=== PATIENT | female | born 1990 | race Caucasian/White ===

== ENCOUNTER 2017-01-24 15:10 | Emergency (ER) | payer OTHER ==
[~2017-01-24] VITALS: Ht 149.9 cm; Wt 64.4 kg
[2017-01-24 16:07] VITALS: BP 120/63
== END 2017-01-24 16:07 | disposition home or self-care (01) ==
LOC: ED 15:10
DX: K08.89 Other specified disorders of teeth and supporting structures (principal); I50.9 Heart failure, unspecified; Z88.0 Allergy status to penicillin; Z88.1 Allergy status to other antibiotic agents; Z88.2 Allergy status to sulfonamides

== ENCOUNTER 2017-04-25 13:39 | Emergency (ER) | payer OTHER ==
[~2017-04-25] VITALS: Ht 149.9 cm; Wt 64.9 kg
[2017-04-25 15:59] VITALS: BP 117/75
== END 2017-04-25 15:59 | disposition home or self-care (01) ==
LOC: ED 13:39
DX: S39.012A Strain of muscle, fascia and tendon of lower back, initial encounter (principal); Z88.0 Allergy status to penicillin; Z88.1 Allergy status to other antibiotic agents; V49.9XXA Car occupant (driver) (passenger) injured in unspecified traffic accident, initial encounter; Y93.89 Activity, other specified; Y99.8 Other external cause status; Y92.89 Other specified places as the place of occurrence of the external cause

== ENCOUNTER 2017-05-01 12:58 | Emergency (ER) | payer OTHER ==
[~2017-05-01] VITALS: Ht 149.9 cm; Wt 64.0 kg
[2017-05-01 14:56] VITALS: BP 106/56
== END 2017-05-01 14:56 | disposition home or self-care (01) ==
LOC: ED 12:58
DX: S29.012A Strain of muscle and tendon of back wall of thorax, initial encounter (principal); Z88.0 Allergy status to penicillin; Z88.1 Allergy status to other antibiotic agents; Z88.8 Allergy status to other drugs, medicaments and biological substances; Z79.899 Other long term (current) drug therapy; V49.9XXA Car occupant (driver) (passenger) injured in unspecified traffic accident, initial encounter; Y93.89 Activity, other specified; Y99.8 Other external cause status; Y92.89 Other specified places as the place of occurrence of the external cause
CPT/HCPCS: 20552; J2001; Q0092

== ENCOUNTER 2017-11-26 14:50 | Emergency (ER) | payer OTHER ==
[~2017-11-26] VITALS: Ht 149.9 cm; Wt 67.7 kg
[2017-11-26 15:06] VITALS: Ht 149.9 cm; Wt 67.7 kg
[2017-11-26 17:07] LABS: BASOPHIL % 0.5 % (0-2); PLATELET COUNT 328 x10^3mcL (130-400); RED CELL DISTRIBUTION WIDTH 14.1 % (11.5-14.5)
[2017-11-26 17:17] LABS: CALCIUM 8.5 mg/dL (8.5-10.1); CARBON DIOXIDE 30.5 mmol/L (21-32); CHLORIDE SERUM 103 mmol/L (98-107); CREATININE SERUM 0.8 mg/dL (0.6-1.0); GFR1 > 60 mL/min; GLUCOSE SERUM 95 mg/dL (74-106); POTASSIUM SERUM 3.8 mmol/L (3.5-5.1); SODIUM SERUM 141 mmol/L (136-145)
[2017-11-26 17:24] LABS: ALKALINE PHOSPHATASE 74 U/L (46-116); ALT/SGPT 24 U/L (14-59); AST/SGOT 15 U/L (15-37); BILIRUBIN TOTAL 0.7 mg/dL (0.20-1.00)
[2017-11-26 18:43] VITALS: BP 94/61
== END 2017-11-26 18:43 | disposition home or self-care (01) ==
LOC: ED 14:50
PROVIDERS: Emergency Medicine
DX: T45.511A Poisoning by anticoagulants, accidental (unintentional), initial encounter (principal); Z88.0 Allergy status to penicillin; Z88.1 Allergy status to other antibiotic agents; Z88.8 Allergy status to other drugs, medicaments and biological substances; Y92.89 Other specified places as the place of occurrence of the external cause
CPT/HCPCS: 83880